=== PATIENT | male | born 1960 | race Caucasian/White ===

== ENCOUNTER 2024-05-10 08:04 | Outpatient (AMB) | payer MEDICARE, OTHER, SELFPAY ==
--- NOTE | 2024-05-10 08:09 | A.OFFVIS_ITS ---
Intake Visit Reasons: Left knee pain and giving way Intake Note: Cali is a 64 year old male who presents with complaints of progressively worsening left knee pain and giving way. The patient states that he injured his knee while playing basketball. He twisted his knee and had acute onset of pain along the medial aspect of his knee. Since that time his symptoms have gotten worse in spite of continued non operative treatments. He has tried Tylenol and anti-inflammatory medicines which gave him minimal relief. He has also done physical therapy exercises which aggravated his pain. He has not been able to play basketball because of his pain and symptoms of instability. He states that his left knee will give out several times per day. Allergies No Known Allergies Allergy (Verified 05/10/24 08:15) Medication List - Last Reconciled 05/11/24 by Rell Arora MD No Known Home Meds Physical Exam Const Other: Well-nourished well-developed very friendly male awake alert and oriented x3 in no acute distress Extrem Other: Bilateral lower extremity examination shows good capillary refill, no skin lesions noted, normal sensation light touch Left knee examination shows a minimal effusion, minimal crepitus with range of motion, tenderness along medial joint line, positive Ivan's test, no instability Results Reviewed Results Reviewed: Standing full weight-bearing x-rays of the patient's left knee show mild diffuse joint space narrowing, no acute bony abnormalities MRI of the patient's left knee taken at [facility] shows mild diffuse d egenerative changes as well as a tear of the medial meniscus Assessment & Plan Assessment & Plan (1) Tear of medial meniscus of left knee: Code(s): S83.242A - Other tear of medial meniscus, current injury, left knee, initial encounter Category: Medical Plan Mr. Alfaro presents with progressively worsening left knee pain and mechanical symptoms due to a tear of his medial meniscus. I had a lengthy discussion with the patient regarding the treatment options. At this point the patient appears to be failing continued non operative treatments. The risks and benefits of left knee arthroscopic surgery were discussed at length with the patient. The patient is considering undergoing surgery later this year or early next year. Surgery will most likely involve left knee diagnostic arthroscopy with arthroscopic partial medial meniscectomy. The patient will continue with his activity modifications in the meantime. Feel free to call me at any time should questions regarding his orthopedic management arise. Thank you very much for asking me to see this very friendly gentleman. I spent 22 minutes in reviewing the patient's records and imaging studies, seeing the patient and documenting in the medical record. Orders: Orders XR knee LT 3V 05/10/24 M25.562 - Pain in left knee Coding Level of Care Code New Pt Level 3 (32049) Complex EM visit Add On G2211 Diagnoses Tear of medial meniscus of left knee S83.242A
== END 2024-05-10 08:36 | disposition home or self-care (01) ==
LOC: HO.HOS 08:05
PROVIDERS: PCP Internal Medicine; Visit Provider Orthopaedic Surgery
DX: S83.242A Other tear of medial meniscus, current injury, left knee, initial encounter (principal)
CPT/HCPCS: 99203

== ENCOUNTER 2024-05-10 11:45 | Outpatient (REF) | payer MEDICARE, OTHER, SELFPAY | END 2024-05-10 11:46 | disposition home or self-care (01) | LOC: HO.HOSX 11:45 | PROVIDERS: Visit Provider Orthopaedic Surgery | DX: M25.562 Pain in left knee (principal) | CPT/HCPCS: 73562 ==

== ENCOUNTER 2024-07-03 10:34 | Outpatient (REF) | payer MEDICARE, OTHER, SELFPAY | END 2024-07-03 10:35 | disposition home or self-care (01) | LOC: HO.HOSX 10:34 | PROVIDERS: Visit Provider Orthopaedic Surgery | DX: M25.562 Pain in left knee (principal); S83.242A Other tear of medial meniscus, current injury, left knee, initial encounter | CPT/HCPCS: 73562; 99212 ==

== ENCOUNTER 2024-07-03 11:33 | Outpatient (AMB) | payer MEDICARE, OTHER, SELFPAY ==
--- NOTE | 2024-07-03 11:46 | MHC.OFFVIS ---
Vital Signs 07/03/24 11:59 Height 5 ft 11 in Weight 168 lb BMI 23.4 Intake Visit Reasons: OV re-injured Left knee Intake Note: Cali is a 64 year old male who presents with complaints of progressively worsening left knee pain and giving way. The patient originally injured his knee while playing basketball on the first week of April. He comes in today stating he re-injured it 10 days ago after slipping on ice while at home. He has taken ibuprofen which gives him mild relief. He is due to go to [place] on vacation over the next few weeks. He states that his left knee will give out at times. Allergies No Known Allergies Allergy (Verified 07/03/24 11:55) Medication List - Last Reconciled 07/03/24 by Rell Arora MD No Known Home Meds Physical Exam Vital Signs: BMI result Body Mass Index 23.4 Const Other: Well-nourished well-developed very friendly male awake alert and oriented x3 in no acute distress Extrem Other: Left knee examination shows a minimal effusion, minimal crepitus with range of motion, tenderness along his medial joint line, positive Ivan's test, no instability Results Reviewed Results Reviewed: X-rays of the patient's left knee taken today show mild diffuse joint space narrowing, no acute bony abnormalities MRI of the patient's left knee taken earlier this year shows mild diffuse degenerative changes as well as a tear of the medial meniscus Assessment & Plan Assessment & Plan (1) Tear of medial meniscus of left knee: Code(s): S83.242A - Other tear of medial meniscus, current injury, left knee, initial encounter Category: Medical Plan Ms. Alfaro presents with recurrent left knee pain and mechanical symptoms due to a medial meniscus tear. I had a lengthy discussion with the patient regarding the treatment options. He wishes to hold off on a cortisone injection for now. I agree with this plan. I did give the patient a prescription for a Medrol Dosepak. He will continue with his modifications. He will follow up with me on an as-needed basis his symptoms worsen in way. Feel free to call me at any time should questions regarding his orthopedic management arise. I spent 20 minutes in reviewing the patient's records and imaging studies, seeing the patient and documenting in the medical record. Orders: Orders XR knee LT 3V Today M25.562 - Pain in left knee Medications: New methylprednisolone (Medrol (Sin)) PO PER PKG DIR 21 ea 0RF Coding Level of Care Code Est Pt Level 3 (07296) Complex EM visit Add On G2211 Diagnoses Tear of medial meniscus of left knee S83.242A
[2024-07-03 11:59] VITALS: BMI 23.4
== END 2024-07-03 12:14 | disposition home or self-care (01) ==
PROVIDERS: PCP Internal Medicine; Visit Provider Orthopaedic Surgery
DX: S83.242A Other tear of medial meniscus, current injury, left knee, initial encounter (principal)
CPT/HCPCS: 99213; G2211

== ENCOUNTER 2024-11-30 08:58 | Outpatient (AMB) | payer MEDICARE, OTHER, SELFPAY ==
[2024-11-30 09:08] VITALS: BMI 23.4
--- NOTE | 2024-11-30 09:08 | MHC.OFFVIS ---
Vital Signs 11/30/24 09:08 Height 5 ft 11 in Weight 168 lb BMI 23.4 Intake Visit Reasons: Right knee pain and giving way Intake Note: Cali is a 64 year old male who presents with complaints of progressively worsening right knee pain and giving way. The patient did recently have an MRI of his left knee which showed evidence of a medial meniscus tear. He states that at this point his left knee pain is tolerable to him. The patient's right knee symptoms have gotten worse over the last few months in spite of continued non operative treatments. He has failed the last 6 weeks of conservative treatment which has included Tylenol, anti-inflammatory medicines, physical therapy exercises and a home exercise program. Most of the pain is along the medial aspect of the patient's knee. Allergies No Known Allergies Allergy (Verified 11/30/24 09:12) Physical Exam Vital Signs: BMI result Body Mass Index 23.4 Const Other: Well-nourished well-developed very friendly male awake alert and oriented x3 in no acute distress Extrem Other: Bilateral lower extremity examination shows good capillary refill, no skin lesions noted, normal sensation light touch Right knee examination shows a minimal effusion, minimal crepitus with range of motion, tenderness along his medial joint line, positive Ivan's test, no instability Results Reviewed Results Reviewed: Standing full weight-bearing x-rays of the patient's right knee show mild diffuse joint space narrowing, no acute bony abnormalities Assessment & Plan Assessment & Plan (1) Tear of medial meniscus of right knee: Code(s): S83.241A - Other tear of medial meniscus, current injury, right knee, initial encounter Category: Medical Plan Mr. Alfaro presents with progressively worsening right knee pain and mechanical symptoms most likely due to a medial meniscus tear. Thus, I will send the patient for an MRI of his right knee for further evaluation. I will see him back once the MRI is completed to discuss the findings and treatment options. Feel free to call me at any time should questions regarding his orthopedic management arise. I spent 20 minutes in reviewing the patient's records and imaging studies, seeing the patient and documenting in the medical record. Orders: Orders MR knee RT wo con Today S83.241A - Other tear of medial meniscus, current injury, right knee, initial encounter XR knee RT 3V Today M25.561 - Pain in right knee Coding Level of Care Code Est Pt Level 3 (33517) Complex EM visit Add On G2296 Diagnoses Tear of medial meniscus of right knee S80.367N
--- OUTSIDE RECORDS SUMMARY | 2024-11-30 09:13 | XMS_ITS | Clinical Summary ---
Author Organization [facility] ity Address [address] [place] [address] Care Team Providers Care Outplacement Consultant Name Role Phone Unavailable Primary Care Provider Unavailabl e Social History Tobacco Use Types Packs/Day Years Used Date Smoking Tobacco: Never Assessed Sex and Gender Information Value Date Recorded Sex Assigned at Not on file Legal Sex Male 9:46 AM EST Gender Identity Not on file Sexual Orientation Not on file Plan of Treatment Health Maintenance Due Date Last Done Comments DTaP,Tdap,and Td Vaccines (1 - Tdap) 1978 Pneumococcal Vaccine: 50+ Ye ars (1 of 1 - PCV) 2009 Zoster Vaccines (1 of 2) 2009 Abdominal Aortic Aneurysm (A AA) Screen 06/09/2022 Cholesterol Screening (Lipid Panel) 06/09/2022 Colorectal Cancer Screening: Colonoscopy 06/09/2022 Depression Screening 06/09/2022 Hepatitis C Screening 06/09/2022 Social Influencers of Health Screening 06/09/2022 Falls Risk Assessment 01/23/2024 COVID-19 Vaccine ( - 2023-2 5 season) 2024 Influenza Vaccine (Season Ended) 2025 RSV Immunization Adult Patie nts (1 - 1-dose 75+ series) 2034 HIB Vaccines Aged Out No longer eligi ble based on patient's age to complete this topic HPV Vaccines Aged Out No longer eligi ble based on patient's age to complete this topic Hepatitis A Vaccines Aged Out No long er eligible based on patient's age to complete this topic Hepatitis B Vaccines Aged Out No long er eligible based on patient's age to complete this topic IPV Vaccines Aged Out No longer eligi ble based on patient's age to complete this topic MMR Vaccines Aged Out No longer eligi ble based on patient's age to complete this topic Meningococcal ACWY Vaccine Aged Out N o longer eligible based on patient's age to complete this topic Meningococcal B Vaccine Aged Out No l onger eligible based on patient's age to complete this topic Pneumococcal Vaccine: Pediat rics (0 to 5 Years) and At-Risk Patients (6 to 64 Years) Aged Out No longer eligible b ased on patient's age to complete this topic RSV Immunization Patients Un kavon 20 months Aged Out No longer eligible b ased on patient's age to complete this topic Varicella Vaccines Aged Out No longer eligible based on patient's age to complete this topic
== END 2024-11-30 09:24 | disposition home or self-care (01) ==
LOC: HO.HOS 08:58
PROVIDERS: PCP Internal Medicine; Visit Provider Orthopaedic Surgery
DX: S83.241A Other tear of medial meniscus, current injury, right knee, initial encounter (principal)
CPT/HCPCS: 99213; G2211

== ENCOUNTER → 2024-11-30 09:00 | Outpatient (BNV) | payer MEDICARE, OTHER, SELFPAY | PROVIDERS: Visit Provider Radiology Diagnostic Radiology | DX: M76.51 Patellar tendinitis, right knee (principal) | CPT/HCPCS: 73562 ==

== ENCOUNTER 2024-11-30 11:39 | Outpatient (REF) | payer MEDICARE, OTHER, SELFPAY ==
--- NOTE | ~2024-11-30 | XR_ITS ---
EXAMINATION: XR KNEE, RIGHT CLINICAL INFORMATION: M25.561 - Pain in right knee COMPARISON: No prior. TECHNIQUE: Three views of the right knee. FINDINGS: No fracture, dislocation, or suspicious bone lesion. Normal bone mineralization. Normal alignment. Joint spaces are preserved. No significant arthropathy. The patella is normally aligned without abnormal tilt. Small superior patellar enthesophyte. There may be a small joint effusion in the suprapatellar bursa. Soft tissues appear normal aside from diffuse vascular calcifications. XR/XR knee RT 3V IMPRESSION: 1. No acute bony abnormalities of the right knee. 2. There may be a small suprapatellar joint effusion. 3. Diffuse vascular calcifications in the soft tissues. Electronically signed by: Andreas Benedict MD 11/30/2024 09:11 AM EDT
--- OUTSIDE RECORDS SUMMARY | 2024-12-01 11:41 | XMS_ITS | Clinical Summary ---
Author Organization [facility] ity Address [address] [place] [address] Care Team Providers Care Guest Relations Manager Name Role Phone Unavailable Primary Care Provider [...]
== END 2024-11-30 11:40 | disposition home or self-care (01) ==
LOC: HO.HOSX 11:39
PROVIDERS: Visit Provider Orthopaedic Surgery
DX: M25.561 Pain in right knee (principal); S83.241A Other tear of medial meniscus, current injury, right knee, initial encounter; X58.XXXA Exposure to other specified factors, initial encounter; Y93.9 Activity, unspecified; Y92.9 Unspecified place or not applicable; Y99.9 Unspecified external cause status
CPT/HCPCS: 73562; 99212

== ENCOUNTER 2024-12-10 18:23 | Outpatient (REF) | payer MEDICARE, OTHER, SELFPAY ==
--- NOTE | ~2024-12-10 | MR_ITS ---
EXAMINATION: MRI RIGHT KNEE WITHOUT CONTRAST HISTORY: S83.241A - Other tear of medial meniscus, current injury, right knee COMPARISON: Correlation is made to plain films of the right knee dated 11/30/2024. TECHNIQUE: Coronal T1 and fat-suppressed proton density, sagittal proton density and fat-suppressed proton density, and axial fat suppressed T2 weighted MR images of the right knee were obtained. FINDINGS: Bone marrow: There is a small exostosis off the posterior aspect of the medial tibial metaphysis. There is a tiny focus of marrow edema involving the posteromedial aspect of the medial tibial plateau, suggestive of a bone contusion. Bone marrow signal intensity is otherwise normal. Joint effusion: There is no joint effusion. Dickey's cyst: There is no Dickey's cyst. Articular cartilage: Intact Muscles/soft tissues: The visualized muscles demonstrate normal signal intensity. Anterior cruciate ligament: Intact Posterior cruciate ligament: Intact Medial collateral ligament: Intact Lateral collateral ligament: Intact Medial meniscus: There is a complex appearing tear of the medial meniscus with a probable radial component involving the body and a horizontal component involving the posterior horn. The anterior horn is intact. Lateral meniscus: Intact Flexor mechanism: The popliteus, gastrocnemius, and hamstring tendons are intact. Quadriceps tendon: Intact Patellar tendon: Intact Patellar retinacula: Intact MR/MR knee RT wo con IMPRESSION: 1. Small exostosis off the posterior aspect of the medial tibial metaphysis. 2. Probable small bone contusion involving the medial aspect of the medial tibial plateau. 3. Complex tear of the body and posterior horn of the medial meniscus as described. Electronically signed by: Al Silva MD 12/11/2024 09:33 AM EDT
== END 2024-12-10 18:24 | disposition home or self-care (01) ==
LOC: HO.MRI 18:23
PROVIDERS: PCP Internal Medicine; Visit Provider Orthopaedic Surgery
DX: S83.241A Other tear of medial meniscus, current injury, right knee, initial encounter (principal)
CPT/HCPCS: 73721

== ENCOUNTER → 2024-12-10 18:23 | Outpatient (BNV) | payer MEDICARE, OTHER, SELFPAY | PROVIDERS: PCP Internal Medicine; Visit Provider Radiology Diagnostic Radiology | DX: M77.31 Calcaneal spur, right foot (principal) | CPT/HCPCS: 73721 ==

== ENCOUNTER 2024-12-20 07:49 | Outpatient (AMB) | payer MEDICARE, OTHER, SELFPAY ==
--- NOTE | 2024-12-20 07:51 | A.OFFVIS_ITS ---
Vital Signs 12/20/24 07:53 Height 5 ft 11 in Weight 168 lb BMI 23.4 Intake Visit Reasons: OV-MRI Knee RT review Intake Note: Cali is a 64 year old male who presents today for review of his right knee MRI results. The patient states that his right knee discomfort has improved somewhat since his last visit. He continues with his home stretching program. He hopes to return to playing basketball in the near future. Allergies No Known Allergies Allergy (Verified 12/20/24 07:55) Medication List - Last Reconciled 12/20/24 by Rell Arora MD Physical Exam Vital Signs: BMI result Body Mass Index 23.4 Const Other: Well-nourished well-developed very friendly male awake alert and oriented x3 in no acute distress Extrem Other: Bilateral lower extremity examination shows good capillary refill, no skin lesions noted, normal sensation light touch Right knee examination shows a minimal effusion, minimal crepitus with range of motion, tenderness along his medial joint line, positive Ivan's test, no instability Results Reviewed Results Reviewed: MRI of the patient's right knee shows mild diffuse degenerative changes as well as a small tear of the medial meniscus Assessment & Plan Assessment & Plan (1) Tear of medial meniscus of right knee: Code(s): S83.241A - Other tear of medial meniscus, current injury, right knee, initial e ncounter Category: Medical Plan Mr. Alfaro presents with intermittent right knee discomfort due to a medial meniscus tear. I had a lengthy discussion with the patient regarding the treatment options. At this point the patient's symptoms are tolerable to him. He will continue with his home exercise program. He will follow up with me on an as-needed basis should his symptoms worsen way. I spent 20 minutes in reviewing the patient's records and imaging studies, seeing the patient and documenting in the medical record. Coding Level of Care Code Est Pt Level 3 (28513) Complex EM visit Add On G2211 Diagnoses Tear of medial meniscus of right knee S83.241A
--- OUTSIDE RECORDS SUMMARY | 2024-12-20 07:51 | XMS_ITS | Clinical Summary ---
Author Organization [facility] ity Address [address] [place] [address] Care Team Providers Care Produce Buyer Name Role Phone Unavailable Primary Care Provider [...]
[2024-12-20 07:53] VITALS: BMI 23.4
== END 2024-12-20 08:03 | disposition home or self-care (01) ==
LOC: HO.HOS 07:50
PROVIDERS: Visit Provider Orthopaedic Surgery
DX: S83.241A Other tear of medial meniscus, current injury, right knee, initial encounter (principal)
CPT/HCPCS: 99213; G2211

== ENCOUNTER → 2024-12-20 07:49 | Outpatient (BNVA) | payer MEDICARE, OTHER, SELFPAY | PROVIDERS: Visit Provider Orthopaedic Surgery | DX: S83.241D Other tear of medial meniscus, current injury, right knee, subsequent encounter (principal) | CPT/HCPCS: 99212 ==